=== PATIENT | male | born 1985 | race Caucasian/White ===

== ENCOUNTER 2023-02-13 20:10 | Emergency (ER) | payer SELFPAY ==
[2023-02-13 20:18] VITALS: BP 94/67; PULSE 58; RESP 20; TEMP 36.5; O2SAT 99; BMI 23.0
[2023-02-13 20:28] LABS: Basophils # 0.1 10^3/uL (0.0-0.1); Basophils % 0.7 %; Eosinophils # 0.2 10^3/uL (0.0-0.8); Eosinophils % 1.7 %; Hematocrit 48.3 % (37-53); Lymphocytes # 3.1 10^3/uL (0.8-4.8); Lymphocytes % 28.2 %; Mean Corpuscular Hemoglobin 31.1 pg (27-33); Mean Corpuscular Volume 91.5 fl (82-101); Mean Platelet Volume 10.1 fL (7.4-10.4); Monocytes # 0.9 10^3/uL (0.2-0.9); Monocytes % 8.6 %; Neutrophils # 6.65 10^3/uL (1.8-7.7); Neutrophils % 60.5 %; Nucleated Red Blood Cells % 0 %; Platelet Count 427 10^3/cmm (157-399); Red Blood Count 5.28 10^6/uL (3.85-5.65); Red Cell Distribution Width 13.1 % (12.1-15.1); White Blood Count 10.99 10^3/uL (3.29-11.43)
--- NOTE | 2023-02-13 20:49 | W.ED.ABDPA2 ---
HPI - Abdominal Pain General: Chief Complaint: Abdominal Pain Stated Complaint: abd pain Time Seen by Provider: 02/13/23 20:41 History of Present Illness: Patient presents to the ER with complaints of right lower quadrant abdominal pain for 5 years. Patient states she just got [facility] where he was seen multiple times for this and was told he had a hernia. Patient states he had nausea vomiting diarrhea over the last 3 to 4 days. Patient states he was set up for surgery while he was in [facility] but he was unable to get that because he got released. Patient says he has his medical records from the [facility] but did not bring them the night. Review of Systems General: Reports: 10 or more systems reviewed and unremarkable except in HPI and below Physical Exam Const: COMMON NORMALS: no acute distress, average body habitus, patient oriented x3, no limitations, healthy appearing, alert and well nourished Eye: COMMON NORMALS: Equal, round and reactive pupils present, EOMs intact bilaterally, conjunctivae normal and no scleral icterus CONJUNCTIVA: Yes conjunctivae normal PUPIL: Yes Equal, round and reactive pupils present Neck/C-Spine: COMMON NORMALS: full ROM, no lymphadenopathy, supple, no meningeal signs, no JVD and Thyroid normal THYROID: Thyroid normal Lymph: LYMPHATIC: no lymphadenopathy noted Chest: COMMONS NORMALS: normal inspection of the chest and normal palpation of entire chest wall Resp: COMMON NORMALS: normal respiratory effort, No retractions, No use of accessory muscles and clear to auscultation bilaterally AUSCULTATION: clear to auscultation bilaterally Cardio: COMMON NORMALS: no JVD, regular rate, regular rhythm, S1 normal heart sound present, S2 normal heart sound present, No gallops present (Cardio), No clicks present (Cardio), No murmurs present (Cardio) and No rub (Cardio) RATE: regular rate RHYTHM: regular rhythm HEART SOUNDS: S1 normal heart sound present and S2 normal heart sound present GI: COMMON NORMALS: Normal to inspection, nondistended, normoactive bowel sounds present, Soft to palpation, non-tender, No hepatosplenomegaly present and no masses PALPATION: Yes Soft to palpation and Yes No hepatosplenomegaly present : COMMON NORMALS: Yes no CVA tenderness BLADDER/KIDNEY EXAM: Yes no CVA tenderness Back/Pelvis: COMMON NORMALS: no CVA tenderness Neuro: COMMON NORMALS: patient oriented x3 SENSORIUM/ORIENTATION: Yes alert MENINGEAL SIGNS: Yes no meningeal signs Course Vital Signs: Vital signs: Vital Signs Temperature 97.7 F 02/13/23 20:18 Pulse Rate 68 02/13/23 21:13 Respiratory Rate 16 02/13/23 21:13 Blood Pressure 109/68 02/13/23 22:29 Pulse Oximetry 95 02/13/23 22:29 Oxygen Delivery Me thod Room Air 02/13/23 20:18 MDM - Abdominal Pain Medical Decision Making Patient presents to the ER complains of right lower quadrant abdominal pain for the last 5 years. Patient was worked up with physical exam and lab work that included blood work, urine and imaging and included a contrasted CT scan of the abdomen pelvis all of which were essentially benign. Patient will be discharged to go home and follow-up with his primary care physician for further evaluation and treatment. Differential Diagnosis Likely abdominal pain and gastroenteritis; Unlikely acute appendicitis, calculus of kidney, constipation, diverticulitis, endometriosis, pancreatitis or small bowel obstruction Medical Records I reviewed the patient's medical records. Lab Data I reviewed the patient's lab results. 02/13/23 20:23 02/13/23 20:23 Labs/Radiology: Radiology Impressions Abdomen/Pelvis CT 02/14/23 00:19 IMPRESSION: 1. No acute findings. Normal appendix. 2. Fecal filled colon. COMMENTS: Consistent with the [employer]'s Incidental Findings Committee white paper (J Am Preston Radiol 2018): Any incidental renal lesion less than 1 cm or classified as too small to characterize, or any incidental cystic renal lesion characterized as simple-appearing, is likely benign. No follow-up imaging is recommended for these lesions per consensus recommendations based on imaging criteria. Laboratory Results WBC 10.99 10^3/uL (3.29-11.43) 02/13/23 20:23 RBC 5.28 10^6/uL (3.85-5.65) 02/13/23 20:23 Hgb 16.40 g/dL (11.27-16.99) 02/13/23 20:23 Hct 48.3 % (37-53) 02/13/23 20:23 MCV 91.5 fl (82-101) 02/13/23 20: MCH 31.1 pg (27-33) 02/13/23 20: MCHC 34.0 g/dL (30-55) 02/13/23 20: RDW 13.1 % (12.1-15.1) 02/13/23: Plt Count 427 10^3/cmm (157-399) H 02/13/23 20: MPV 10.1 fL (7.4-10.4) 02/13/23 20: Neut % (Auto) 60.5 % 02/13/23 20: Lymph % (Auto) 28.2 % 02/13/23 20: [place] % (Auto) 8.6 % 02/13/23 20: Eos % (Auto) 1.7 % 02/13/23: Baso % (Auto) 0.7 % 02/13/23: Neut # (Auto) 6.65 10^3/uL (1.8-7.7) 02/13/23: Lymph # (Auto) 3.1 10^3/uL (0.8-4.8) 02/13/23 20: [place] # (Auto) 0.9 10^3/uL (0.2-0.9) 02/13/23 20: Eos # (Auto) 0.2 10^3/uL (0.0-0.8) 02/13/23: Baso # (Auto) 0.1 10^3/uL (0.0-0.1) 02/13/23: Nucleated RBC % (auto) 0 % 02/13/23: Nucleated RBCs # 0.0 /100WBC 02/13/23 20: Sodium 138 mmol/L (136-145) 02/13/23 20: Potassium 4.2 mmol/L (3.5-5.1) 02/13/23 20: Chloride 100 mmol/L (98-107) 02/13/23 20: Carbon Dioxide 28 mmol/L (22-29) 02/13/23 20: Anion Gap 14.2 (5-19) 02/13/23 20: BUN 17 mg/dL (6-20) 02/13/23 20: Creatinine 1.1 mg/dL (0.7-1.2) 02/13/23 20: GFR Calculation 75.7 mL/min (90-130) L 02/13/23 20:23 Glucose 73 mg/dL (65-115) 02/13/23 20:23 Calculated Osmolality 286 mOsm/kg (285-295) 02/13/23 20:23 Calcium 9.7 mg/dL (8.5-10.5) 02/13/23 20:23 Total Bilirubin 0.3 mg/dL (0.15-1.2) 02/13/23 20: AST 26 U/L (0-40) 02/13/23 20:23 ALT 27 U/L (0-41) 02/13/23 20:23 Alkaline Phosphatase 57 U/L (40-130) 02/13/23 20:23 Total Protein 7.8 g/dL (6.6-8.7) 02/13/23 20: Albumin 4.8 g/dL (3.5-5.2) 02/13/23 20: Globulin 3.0 g/dL (1.3-4.6) 02/13/23 20:23 Lipase 68 U/L (13-60) H 02/13/23 20:23 Urine Color Yellow (Yellow) 02/13/23 23:36 Urine Appearance Clear (CLEAR) 02/13/23 23:36 Urine pH 5 (5-7) 02/13/23 23:36 Ur Specific [place] 1.025 (1.005-1.030) 02/13/23 23:36 Urine Protein Trace (Negative) 02/13/23 23:36 Urine Glucose (UA) Norm (Normal) 02/13/23 23:36 Urine Ketones 1+ (Negative) H 02/13/23 23:36 Urine Blood Neg (Negative) 02/13/23 23:36 Urine Nitrate Negative (Negative) 02/13/23 23:36 Urine Bilirubin 1+ (Negative) H 02/13/23 23:36 Urine Urobilinogen 4 mg/dL (Negative) H 02/13/23 23:36 Ur Leukocyte Esterase Negative (Negative) 02/13/23 23:36 Urine RBC None /hpf (0-2) 02/13/23 23:36 Urine WBC None /hpf (0-5) 02/13/23 23:36 Ur Squamous Epith Cells None /hpf (0-5) 02/13/23 23:36 Calcium Oxalate Crystal 0-4 /hpf H 02/13/23 23:36 Amorphous Sediment 1+ /hpf 02/13/23 23:36 Urine Bacteria 1+ /hpf (NONE) H 02/13/23 23:36 Urine Mucus 3+ /hpf 02/13/23 23:36 Discharge Plan Discharge Patient Disposition: Home Clinical Impression: Abdominal pain, chronic, right lower quadrant Condition: Stable Discharge Orders: Discharge ED (Routine); Ordered 02/14/23 Ordered By: Terry Preciado Patient Instructions: Abdominal Pain (ED) Activity Restrictions/Additional Instructions: Please follow-up with your family practice physician for further evaluation and treatment of your chronic abdominal pain. Coding Level of Care Code ED Nutrition Services Worker for Sujatha Kulkarni
[2023-02-13 20:50] LABS: Alanine Aminotransferase 27 U/L (0-41); Albumin Level 4.8 g/dL (3.5-5.2); Alkaline Phosphatase 57 U/L (40-130); Anion Gap 14.2 (5-19); Aspartate Amino Transferase 26 U/L (0-40); Blood Urea Nitrogen 17 mg/dL (6-20); Calcium 9.7 mg/dL (8.5-10.5); Carbon Dioxide 28 mmol/L (22-29); Chloride 100 mmol/L (98-107); Glomerular Filtration Rate 75.7 mL/min (90-130); Glucose 73 mg/dL (65-115); Lipase 68 U/L (13-60); Osmolality Calculated 286 mOsm/kg (285-295); Potassium 4.2 mmol/L (3.5-5.1); Sodium 138 mmol/L (136-145); Total Bilirubin 0.3 mg/dL (0.15-1.2); Total Protein 7.8 g/dL (6.6-8.7)
[2023-02-13 21:13] VITALS: BP 111/69; PULSE 68; RESP 16; O2SAT 93
[2023-02-13 22:29] VITALS: BP 109/68; O2SAT 95
[2023-02-13] MEDS: sodium chloride 0.9% 1,000 ML 999 ML IV (22:30)
[2023-02-14 00:12] LABS: Bilirubin Urine 1+ (Negative); Blood Urine Neg (Negative); Glucose Urine UA Norm (Normal); Ketones Urine 1+ (Negative); Nitrate Urine Negative (Negative); Protein Urine Trace (Negative); Specific Gravity, Urine 1.025 (1.005-1.030); Urine Appearance Clear (CLEAR); Urine Color Yellow (Yellow); pH Urine 5 (5-7)
[2023-02-14 00:13] LABS: Add Urine Culture? No; Add Urine Microscopic? YES; Amorphous Sediment Urine 1+ /hpf; Bacteria Urine 1+ /hpf; Calcium Oxalate Crystals Urine 0-4 /hpf; Leukocyte Esterase Urine Negative (Negative); Mucus Urine 3+ /hpf; Urobilinogen Urine 4 mg/dL (Negative)
--- NOTE | 2023-02-14 00:19 | CTR_ITS ---
PROCEDURE INFORMATION: Exam: CT Abdomen And Pelvis With Contrast Exam date and time: 02/14/2023 12:39 AM Age: 37 years old Clinical indication: Abdominal pain; Localized; Right lower quadrant (rlq); Patient HX: History--patient says he has been in intermediate for 5 years and just got out, he says he has had rlq for all those years but was never able to get in checked out. He says it all started when he was doing pushups. ; Additional info: Rlq abd pain TECHNIQUE: Imaging protocol: Computed tomography of the abdomen and pelvis with contrast. Radiation optimization: All CT scans at this facility use at least one of these dose optimization techniques: automated exposure control; mA and/or kV adjustment per patient size (includes targeted exams where dose is matched to clinical indication); or iterative reconstruction. Contrast material: OMNI 350; Contrast volume: 80 ml; Contrast route: INTRAVENOUS (IV); REPORTING DATA: Count of CT and Cardiac NM exams in prior 12 months: This patient has received 0 known CTs and 0 known cardiac nuclear medicine studies in the 12 months prior to the current study. COMPARISON: No relevant prior studies available. RADIATION DOSE METRICS: Total DLP (mGy-cm): 428.6 FINDINGS: Lungs: The visualized lung bases are clear. Small right basilar calcified benign nodule. Liver: Unremarkable. No enhancing mass. Gallbladder and bile ducts: No calcified gallstones or biliary dilation identified. Pancreas: Unremarkable with no suspicious mass. No ductal dilation. Spleen: The spleen is not enlarged. No suspicious enhancing mass is noted. Adrenal glands: Normal. No mass. Kidneys and ureters: No solid renal mass or hydronephrosis. Few minute left renal cystic foci. Stomach and bowel: No small bowel obstruction or free air. No overt mucosal thickening. The colon is rather fecal filled. Appendix: No evidence of appendicitis. Intraperitoneal space: Unremarkable. No free air. No suspicious fluid collection. Vasculature: No AAA or acute vascular lesion identified. Lymph nodes: No enlarged lymph nodes. Urinary bladder: Unremarkable as visualized. Reproductive: Unremarkable as visualized. Bones/joints: No acute fracture. Soft tissues: No acute or suspicious finding noted. CT/CT abdomen pelvis w con* [id number] IMPRESSION: 1. No acute findings. Normal appendix. 2. Fecal filled colon. COMMENTS: Consistent with the [employer]'s Incidental Findings Committee white paper (J Am Preston Radiol 2018): Any incidental renal lesion less than 1 cm or classified as too small to characterize, or any incidental cystic renal lesion characterized as simple-appearing, is likely benign. No follow-up imaging is recommended for these lesions per consensus recommendations based on imaging criteria.
[2023-02-14] MEDS: iohexol 350 mg/mL 500 mL Btl (per mL) IV (00:48)
[2023-02-14 02:00] VITALS: PULSE 73; RESP 16; O2SAT 97
== END 2023-02-14 02:15 | disposition home or self-care (01) ==
PROVIDERS: Emergency Medicine; Emergency Provider Emergency Medicine
DX: G89.29 Other chronic pain (principal); R10.31 Right lower quadrant pain
CPT/HCPCS: 36415; 74177; 80053; 81001; 81003; 83690; 85025; 99285; J7030; Q9967

== ENCOUNTER 2023-05-15 04:11 | Inpatient (IN) | payer SELFPAY ==
[2023-05-15 04:15] VITALS: BP 131/84; PULSE 85; RESP 16; TEMP 36.6; O2SAT 100
--- NOTE | 2023-05-15 04:31 | W.ED.PSYCHS ---
HPI - Psych General: Chief Complaint: Psychiatric Symptoms Stated Complaint: SI History of Present Illness: Patient presents to the ER for evaluation for suicidal ideation by the police department. 's department responded to his trailer for 911 called stating that he was going to burn his trailer down with him inside. Patient made statements about other people being outside his house shining laser pointers into his house. Patient says he got into a fight with his mother today and they started his irrational behavior. Patient states he just gets to take care of his own. There might talking to him it did appear that he was having visual hallucinations however he never would admit to them. And he was talking tangentially and not making a whole lot of sense part of the time. Patient did report smoking meth within the last 24 hours. Patient also reported being on parole and just recently getting out of intermediate. Review of Systems General: Reports: 10 or more systems reviewed and unremarkable except in HPI and below Physical Exam Const: COMMON NORMALS: no acute distress, average body habitus, healthy appearing, alert and well nourished HENMT: COMMON NORMALS: normocephalic, atraumatic, hearing grossly normal bilaterally, external ears normal, Normal external nose present, moist oral mucous membranes and oropharynx normal HEAD & SCALP: normocephalic and atraumatic NOSE: Normal external nose present EXTERNAL EAR: Yes external ears normal Neck/C-Spine: COMMON NORMALS: no JVD Chest: COMMONS NORMALS: normal inspection of the chest and normal palpation of entire chest wall Resp: COMMON NORMALS: normal respiratory effort, No retractions, No use of accessory muscles and clear to auscultation bilaterally AUSCULTATION: clear to auscultation bilaterally Cardio: COMMON NORMALS: no JVD, regular rate, regular rhythm, S1 normal heart sound present, S2 normal heart sound present, No gallops present (Cardio), No clicks present (Cardio), No murmurs present (Cardio) and No rub (Cardio) RATE: regular rate RHYTHM: regular rhythm HEART SOUNDS: S1 normal heart sound present and S2 normal heart sound present Neuro: SENSORIUM/ORIENTATION: Yes alert Course Vital Signs: Vital signs: Vital Signs Temperature 98 F 05/15/23 04:15 Pulse Rate 85 05/15/23 04:15 Respiratory Rate 16 05/15/23 04:15 Blood Pressure 131/84 05/15/23 04:15 Pulse Oximetry 100 05/15/23 04:15 Oxygen Delivery Me thod Room Air 05/15/23 04:15 MDM - Psych Medical Decision Making Patient brought into the ER for suicidal ideation and hallucinations. Patient admitted to using methamphetamines within the last 24 hours. He admitted to being on parole and just being recently released out of intermediate. Patient was having psychotic behavior and visual hallucinations and did say that he threatened to burn his house down with him inside it. Patient was worked up in normal suicidal psychiatric type fashion. Anticipated patient will be placed on a 96-hour hold for further evaluation and treatment as an inpatient in the [facility]. Discussed case with Dr. Ordonez who agrees to accept patient for into the [facility] for further evaluation and treatment. Differential Diagnosis Likely acute psychosis, suicidal ideation and drug-induced psychotic disorder; Unlikely chronic schizophrenia, bipolar disorder, depression or acute anxiety Medical Records I reviewed the patient's medical records. Lab Data I reviewed the patient's lab results. 05/15/23 04:30 05/15/23 04:30 Laboratory Results WBC 7.62 10^3/uL (3.29-11.43) 05/15/23 04:30 RBC 4.67 10^6/uL (3.85-5.65) 05/15/23 04:30 Hgb 14.50 g/dL (11.27-16.99) 05/15/23 04:30 Hct 42.9 % (37-53) 05/15/23 04:30 MCV 91.9 fl (82-101) 05/15/23 04:30 MCH 31.0 pg (27-33) 05/15/23 04:30 MCHC 33.8 g/dL (30-55) 05/15/23 04:30 RDW 13.4 % (12.1-15.1) 05/15/23 04:30 Plt Count 349 10^3/cmm (157-399) 05/15/23 04:30 MPV 10.1 fL (7.4-10.4) 05/15/23 04:30 Neut % (Auto) 64.8 % 05/15/23 04:30 Lymph % (Auto) 24.4 % 05/15/23 04:30 [place] % (Auto) 8.9 % 05/15/23 04:30 Eos % (Auto) 0.7 % 05/15/23 04:30 Baso % (Auto) 0.9 % 05/15/23 04:30 Neut # (Auto) 4.94 10^3/uL (1.8-7.7) 05/15/23 04:30 Lymph # (Auto) 1.9 10^3/uL (0.8-4.8) 05/15/23 04:30 [place] # (Auto) 0.7 10^3/uL (0.2-0.9) 05/15/23 04:30 Eos # (Auto) 0.1 10^3/uL (0.0-0.8) 05/15/23 04:30 Baso # (Auto) 0.1 10^3/uL (0.0-0.1) 05/15/23 04:30 Nucleated RBC % (auto) 0 % 05/15/23 04:30 Nucleated RBCs # 0.0 /100WBC 05/15/23 04:30 Sodium 139 mmol/L (136-145) 05/15/23 04:30 Potassium 3.2 mmol/L (3.5-5.1) L 05/15/23 04:30 Chloride 98 mmol/L (98-107) 05/15/23 04:30 Carbon Dioxide 28 mmol/L (22-29) 05/15/23 04:30 Anion Gap 16.2 (5-19) 05/15/23 04:30 BUN 17 mg/dL (6-20) 05/15/23 04:30 Creatinine 0.8 mg/dL (0.7-1.2) 05/15/23 04:30 GFR Calculation 109.4 mL/min (90-130) 05/15/23 04:30 Glucose 103 mg/dL (65-115) 05/15/23 04:30 Calculated Osmolality 290 mOsm/kg (285-295) 05/15/23 04:30 Calcium 9.3 mg/dL (8.5-10.5) 05/15/23 04:30 Total Bilirubin 1.1 mg/dL (0.15-1.2) 05/15/23 04:30 AST 41 U/L (0-40) H 05/15/23 04:30 ALT 25 U/L (0-41) 05/15/23 04:30 Alkaline Phosphatase 56 U/L (40-130) 05/15/23 04:30 Total Protein 7.4 g/dL (6.6-8.7) 05/15/23 04:30 Albumin 4.4 g/dL (3.5-5.2) 05/15/23 04:30 Globulin 3.0 g/dL (1.3-4.6) 05/15/23 04:30 Salicylates < 0.3 mg/dL (3-10) L 05/15/23 04:30 Acetaminophen < 5.0 ug/mL (10-30) L 05/15/23 04:30 Ethyl Alcohol < 10 mg/dL (0-10) 05/15/23 04:30 No radiology studies performed this visit Discharge Plan Discharge Patient Disposition: Admitted As Inpatient Clinical Impression: Suicidal ideation, Methamphetamine abuse Drug-induced psychotic disorder Qualifiers: Complication of substance-induced condition: with hallucinations Qualified Code(s): F19.951 - Other psychoactive substance use, unspecified with psychoactive substance-induced psychotic disorder with hallucinations Condition: Stable Coding Level of Care Code ED Digital Marketing Manager for Sujatha Kulkarni
[2023-05-15 04:39] LABS: Basophils # 0.1 10^3/uL (0.0-0.1); Basophils % 0.9 %; Eosinophils # 0.1 10^3/uL (0.0-0.8); Eosinophils % 0.7 %; Hematocrit 42.9 % (37-53); Lymphocytes # 1.9 10^3/uL (0.8-4.8); Lymphocytes % 24.4 %; Mean Corpuscular HGB Conc 33.8 g/dL (30-55); Mean Corpuscular Volume 91.9 fl (82-101); Mean Platelet Volume 10.1 fL (7.4-10.4); Monocytes # 0.7 10^3/uL (0.2-0.9); Monocytes % 8.9 %; Neutrophils # 4.94 10^3/uL (1.8-7.7); Neutrophils % 64.8 %; Nucleated Red Blood Cells % 0 %; Platelet Count 349 10^3/cmm (157-399); Red Blood Count 4.67 10^6/uL (3.85-5.65); Red Cell Distribution Width 13.4 % (12.1-15.1); White Blood Count 7.62 10^3/uL (3.29-11.43)
[2023-05-15 04:51] LABS: Alanine Aminotransferase 25 U/L (0-41); Albumin Level 4.4 g/dL (3.5-5.2); Alkaline Phosphatase 56 U/L (40-130); Anion Gap 16.2 (5-19); Aspartate Amino Transferase 41 U/L (0-40); Blood Urea Nitrogen 17 mg/dL (6-20); Calcium 9.3 mg/dL (8.5-10.5); Carbon Dioxide 28 mmol/L (22-29); Chloride 98 mmol/L (98-107); Glomerular Filtration Rate 109.4 mL/min (90-130); Glucose 103 mg/dL (65-115); Osmolality Calculated 290 mOsm/kg (285-295); Potassium 3.2 mmol/L (3.5-5.1); Sodium 139 mmol/L (136-145); Total Bilirubin 1.1 mg/dL (0.15-1.2); Total Protein 7.4 g/dL (6.6-8.7)
[2023-05-15 04:53] LABS: Acetaminophen < 5.0 ug/mL (10-30); Alcohol Level < 10 mg/dL (0-10); Salicylate < 0.3 mg/dL (3-10)
--- NOTE | 2023-05-15 05:30 | PC.NURSE ---
96 Hour Involuntary Hold Patient Rights have been presented to the patient and a copy of the same has been provided to him. Rn Imcu Celso Lord was present at bedside.
[2023-05-15 06:11] VITALS: BP 122/84; PULSE 79; RESP 18; TEMP 36.4; O2SAT 100
[2023-05-15 14:00] VITALS: BP 116/67; PULSE 70; RESP 18; TEMP 36.8; O2SAT 99
[2023-05-15] MEDS: nicotine 4 mg lozenge MUCOUS MEM (18:07)
[2023-05-15] MEDS: acetaminophen 325 mg Tablet 650 MG PO (20:12)
[2023-05-15 20:20] VITALS: BP 92/61; PULSE 110; RESP 16; TEMP 36.9; O2SAT 93
--- NOTE | 2023-05-16 06:32 | W.PM.NPUH&PS ---
Providers/Chief Complaint Admitting Physician: Sesar Ordonez MD Chief Complaint: SI HPI NPU History of Present Illness Felix Greene is a 37 year old male who presented to the emergency department with the following report: Chief Complaint: Psychiatric Symptoms Stated Complaint: SI History of Present Illness: Patient presents to the ER for evaluation for suicidal ideation by the police department. [employer]'s department responded to his trailer for 911 called stating that he was going to burn his trailer down with him inside. Patient made statements about other people being outside his house shining laser pointers into his house. Patient says he got into a fight with his mother today and they started his irrational behavior. Patient states he just gets to take care of his own. There might talking to him it did appear that he was having visual hallucinations however he never would admit to them. And he was talking tangentially and not making a whole lot of sense part of the time. Patient did report smoking meth within the last 24 hours. Patient also reported being on parole and just recently getting out of detention. He was admitted to the neuropsychiatric unit for definitive treatment of those issues. Patient presented today reporting that he is doing okay. He is mostly focused on his conflicts with his family. In the entire conversation he absolutely downplayed any issues with addiction though his UDS was positive for cannabis and amphetamines. He presents reporting that he just got out of detention 6 months ago and that the challenge has been trying to reintegrate with his family reporting that at times he is needed them and they have not been there for him. He denied any issues with depression anxiety or any other mental health symptoms and spent much of the time talking about the fact that he just needs to leave town. He did not want to talk about some of the psychosocial questions that I was asking. He kept saying that he just made a mistake and trying to count on his family and he just needs to get out of town. He does acknowledge that prior to going into detention that he had some issues with drugs but he reports that that is all behind him now. He was a poor historian and was often confused by questions. We discussed the possibility of considering medication discussing the risks, benefits and alternatives and he understood but was not interested in starting medications at this time. He downplayed the psychotic symptoms that have been identified prior to admission and in the emergency department. Meds NPU Home Medications Medication Instructions Recorded Confirmed Last Taken Type No Known Home Medications 05/15/23 05/15/23 Unknown History Allergies Allergy/AdvReac Type Severity Reaction Status Date / Time Penicillins Allergy Mild Unknown Verified 02/13/23 20:28 Mental Status Exam MSE Comments: This is a slender white male in hospital scrubs with limited grooming but adequate eye contact. No abnormal movements except for mild psychomotor agitation. Mostly cooperative with exam in mild to moderate distress. Speech was decreased rate and volume. Lastly, affect irritable. Thought process organized. Thought content: Patient denied suicidal or homicidal ideation, no delusions reported noted, he denied any auditory or visual hallucinations. Attention and concentration were intact and memory appeared reliable but none were formally tested. He is alert and oriented x 3. Insight, judgment impulse control are limited versus impaired. Vitals/I&O/Wt Last Vital Signs Temp 98 F 05/15/23 04:15 Pulse 85 05/15/23 04:15 Resp 16 05/15/23 04:15 BP 131/84 05/15/23 04:15 Pulse Ox 100 05/15/23 04:15 O2 Del Method Room Air 05/15/23 04:15 Weight last 48 hrs Weight 63.503 kg Data NPU 05/15/23 04:30 05/15/23 04:30 A&P Assessment and plan (1) Methamphetamine abuse: (2) Drug-induced psychotic disorder: Qualifiers: Complication of substance-induced condition: with hallucinations Qualified Code(s): F19.951 - Other psychoactive substance use, unspecified with psychoactive substance-induced psychotic disorder with hallucinations (3) Suicidal ideation: Plan This is a 37-year-old white male with no major mental health issues or treatment reported who presents after a conflict with his family where there were reports of suicidal ideation reporting that he is doing fine and just needs to leave town not reporting openness to medication. 1. Continue current medication. 2. Continue every 15 minute checks for safety. 3. Encourage individual, group and milieu therapies. 4. Encourage sober living treatment after discharge at the highest level of care to which he is willing to go. Attestations N[facility] Medical Necessity Statement*: Inpatient hospitalization is medically necessary and the clinically appropriate intervention at this time. We will monitor/initiate medications and make changes as indicated. He will be in the hospital for over 2 midnights. Likely length of stay 3 to 5 days. Coding Level of Care Code Acute Code for Chg Fwd Diagnoses Methamphetamine abuse F15.10 Drug-induced psychotic disorder F19.951 Complication of substance-induced condition: with hallucinations Suicidal ideation R45.851
--- NOTE | 2023-05-16 06:42 | PC.NURSE ---
pt sleeping resp 16
[2023-05-16 14:00] VITALS: BP 64/44; PULSE 104; RESP 16; TEMP 36.8; O2SAT 97
[2023-05-16] MEDS: acetaminophen 325 mg Tablet 650 MG PO (17:50)
[2023-05-16 18:30] LABS: Add Urine Microscopic? YES; Bilirubin Urine Neg (Negative); Blood Urine Neg (Negative); Glucose Urine UA Norm (Normal); Ketones Urine Negative (Negative); Leukocyte Esterase Urine Negative (Negative); Nitrate Urine Negative (Negative); Protein Urine Neg (Negative); Specific Gravity, Urine 1.015 (1.005-1.030); Urine Appearance Hazy (CLEAR); Urine Color Yellow (Yellow); Urobilinogen Urine Norm (Negative); pH Urine 7 (5-7)
[2023-05-16 18:31] LABS: Add Urine Culture? No; Amorphous Sediment Urine 2+ /hpf; Bacteria Urine TRACE /hpf; RBC Urine 0-4 /hpf (0-2); Squamous Epithelial Cell Urine 0-4 /hpf (0-5); WBC Urine 0-4 /hpf (0-5)
[2023-05-16 18:42] LABS: Amphetamines Screen Urine Positive (Negative); Barbiturates Screen Urine Negative (Negative); Benzodiazepines Screen Urine Negative (Negative); Cocaine Screen Urine Negative (Negative); Opiate Screen Urine Negative (Negative); PCP Screen Urine Negative (Negative); THC Screen Urine Positive (Negative)
[2023-05-16 20:52] VITALS: BP 94/54; PULSE 68; RESP 16; TEMP 36.8; O2SAT 99
[2023-05-17 06:00] VITALS: BP 110/68; PULSE 65; RESP 18; TEMP 36.7; O2SAT 99
--- NOTE | 2023-05-17 08:32 | P.NPUPN_ITS ---
Subjective NPU 2 Subjective: Patient presented today reporting that he is doing okay. When the methamphetamine was brought at this time he was more forthcoming and discussing his difficulties but reports that he has been sober since before he went into care home. He reports that he plans to put it back behind him but feels that the best opportunity is him going to [place] and getting things recalibrated. We discussed the possibility of discharge to beginning of the week. Mental Status Exam 2 MSE Comments: This is a slender white male in hospital scrubs with limited grooming but adequate eye contact. No abnormal movements except for mild psychomotor agitation. Mostly cooperative with exam in mild to moderate distress. Speech was decreased rate and volume. Lastly, affect irritable. Thought process organized. Thought content: Patient denied suicidal or homicidal ideation, no delusions reported noted, he denied any auditory or visual hallucinations. Attention and concentration were intact and memory appeared reliable but none were formally tested. He is alert and oriented x 3. Insight, judgment impulse control are limited versus impaired. Vitals/I&O/Wt Last Vital Signs Temp 98.1 F 05/17/23 06:00 Pulse 65 05/17/23 06:00 Resp 18 05/17/23 06:00 BP 110/68 05/17/23 06:00 Pulse Ox 99 05/17/23 06:00 O2 Del Method Room Air 05/16/23 14:00 Data NPU 05/15/23 04:30 05/15/23 04:30 A&P Assessment and plan (1) Methamphetamine abuse: (2) Drug-induced psychotic disorder: Qualifiers: Complication of substance-induced condition: with hallucinations Qualified Code(s): F19.951 - Other psychoactive substance use, unspecified with psychoactive substance-induced psychotic disorder with hallucinations (3) Suicidal ideation: Plan This is a 37-year-old white male with no major mental health issues or treatment reported who presents after a conflict with his family where there were reports of suicidal ideation reporting that he is doing fine and just needs to leave town not reporting openness to medication. 1. Continue current medication. 2. Continue every 15 minute checks for safety. 3. Encourage individual, group and milieu therapies. 4. Encourage sober living treatment after discharge at the highest level of care to which he is willing to go. Involuntary Hold Information 2 96 Hour Hold: 96 Hour Involuntary Admission: Yes 96 Hour Hold Ending Date: 05/21/23 96 Hour Hold Ending Time: 04:11 Attestations NPU 2 Medical Necessity Statement*: Inpatient hospitalization is medically necessary and the clinically appropriate intervention at this time. We will monitor/initiate medications and make changes as indicated. Likely length of stay 2-4 days. Coding Level of Care Code Acute Code for Chg Fwd Diagnoses Methamphetamine abuse F15.10 Drug-induced psychotic disorder F19.951 Complication of substance-induced condition: with hallucinations Suicidal ideation R45.851
[2023-05-17 14:00] VITALS: BP 108/77; PULSE 75; RESP 16; TEMP 36.6; O2SAT 98
[2023-05-17 20:43] VITALS: BP 106/66; PULSE 67; RESP 18; O2SAT 96
[2023-05-18 06:00] VITALS: BP 115/68; PULSE 67; RESP 16; O2SAT 99
--- NOTE | 2023-05-18 13:03 | P.NPUPN_ITS ---
Subjective NPU 2 Subjective: Patient presented today reporting that he is feeling better and we continue to talk about his difficulties with methamphetamine. His plan is to work with his family once the social work team returns get his RV and move up to [place] where he has a better chance of being stable. Mental Status Exam 2 MSE Comments: This is a slender white male in hospital scrubs with limited grooming but adequate eye contact. No abnormal movements except for mild psychomotor agitation. Mostly cooperative with exam in mild to moderate distress. Speech was decreased rate and volume. Lastly, affect irritable. Thought process organized. Thought content: Patient denied suicidal or homicidal ideation, no delusions reported noted, he denied any auditory or visual hallucinations. Attention and concentration were intact and memory appeared reliable but none were formally tested. He is alert and oriented x 3. Insight, judgment impulse control are limited versus impaired. Vitals/I&O/Wt Last Vital Signs Temp 97.8 F 05/17/23 14:00 Pulse 67 05/18/23 06:00 Resp 16 05/18/23 06:00 BP 115/68 05/18/23 06:00 Pulse Ox 99 05/18/23 06:00 O2 Del Method Room Air 05/17/23 14:00 Weight last 48 hrs Weight 61.326 kg Data NPU 05/15/23 04:30 05/15/23 04:30 A&P Assessment and plan (1) Methamphetamine abuse: (2) Drug-induced psychotic disorder: Qualifiers: Complication of substance-induced condition: with hallucinations Qualified Code(s): F19.951 - Other psychoactive substance use, unspecified with psychoactive substance-induced psychotic disorder with hallucinations (3) Suicidal ideation: Plan This is a 37-year-old white male with no major mental health issues or treatment reported who presents after a conflict with his family where there were reports of suicidal ideation reporting that he is doing fine and just needs to leave town not reporting openness to medication. 1. Continue current medication. 2. Continue every 15 minute checks for safety. 3. Encourage individual, group and milieu therapies. 4. Encourage sober living treatment after discharge at the highest level of care to which he is willing to go. Involuntary Hold Information 2 96 Hour Hold: 96 Hour Involuntary Admission: Yes 96 Hour Hold Ending Date: 05/21/23 96 Hour Hold Ending Time: 04:11 Attestations NPU 2 Medical Necessity Statement*: Inpatient hospitalization is medically necessary and the clinically appropriate intervention at this time. We will monitor/initiate medications and make changes as indicated. Likely length of stay 1-3 yes days. Coding Level of Care Code Acute Code for Chg Fwd Diagnoses Methamphetamine abuse F15.10 Drug-induced psychotic disorder F19.951 Complication of substance-induced condition: with hallucinations Suicidal ideation R45.851
[2023-05-18 14:00] VITALS: BP 114/71; PULSE 68; RESP 16; TEMP 36.6; O2SAT 98
[2023-05-18 19:39] VITALS: BP 120/93; PULSE 78; RESP 18; TEMP 36.7; O2SAT 97
[2023-05-18] MEDS: ibuprofen 600 mg Tablet PO (19:44)
[2023-05-19 06:00] VITALS: BP 112/75; PULSE 60; RESP 16; O2SAT 100
--- NOTE | 2023-05-19 13:02 | W.PM.NPUDCS ---
Diagnoses at Discharge Discharge Diagnosis (1) Methamphetamine abuse: Status: Acute (2) Drug-induced psychotic disorder: Status: Acute Qualifiers: Complication of substance-induced condition: with hallucinations Qualified Code(s): F19.951 - Other psychoactive substance use, unspecified with psychoactive substance-induced psychotic disorder with hallucinations (3) Suicidal ideation: Status: Resolved Reason for Visit Reason for Visit: SI Brief History: History of Present Illness Felix Greene is a 37 year old male who presented to the emergency department with the following report: Chief Complaint: Psychiatric Symptoms Stated Complaint: SI History of Present Illness: Patient presents to the ER for evaluation for suicidal ideation by the police department. [employer]'s department responded to his trailer for 911 called stating that he was going to burn his trailer down with him inside. Patient made statements about other people being outside his house shining laser pointers into his house. Patient says he got into a fight with his mother today and they started his irrational behavior. Patient states he just gets to take care of his own. There might talking to him it did appear that he was having visual hallucinations however he never would admit to them. And he was talking tangentially and not making a whole lot of sense part of the time. Patient did report smoking meth within the last 24 hours. Patient also reported being on parole and just recently getting out of correction. He was admitted to the neuropsychiatric unit for definitive treatment of those issues. Patient presented today reporting that he is doing okay. He is mostly focused on his conflicts with his family. In the entire conversation he absolutely downplayed any issues with addiction though his UDS was positive for cannabis and amphetamines. He presents reporting that he just got out of correction 6 months ago and that the challenge has been trying to reintegrate with his family reporting that at times he is needed them and they have not been there for him. He denied any issues with depression anxiety or any other mental health symptoms and spent much of the time talking about the fact that he just needs to leave town. He did not want to talk about some of the psychosocial questions that I was asking. He kept saying that he just made a mistake and trying to count on his family and he just needs to get out of town. He does acknowledge that prior to going into correction that he had some issues with drugs but he reports that that is all behind him now. He was a poor historian and was often confused by questions. We discussed the possibility of considering medication discussing the risks, benefits and alternatives and he understood but was not interested in starting medications at this time. He downplayed the psychotic symptoms that have been identified prior to admission and in the emergency department. Hospital Course Hospital Course He slowly acclimated to the individual, group and milieu therapies provided. He presented with a long history of legal challenges and incarceration. He was endorsing lethality and there were concerns for antisocial personality disorder and possibly malingering. He was not interested in starting any medications and was resistant in general to treatment. We monitored him to do due diligence for consideration of discharge. Ultimately he worked with the social work team for outpatient resources and collaboration with his support system to assist him in possibly getting out of town which was his reported desire. During the stay, he had significant improvement and was able to contract for safety outside of the hospital prior to discharge. During the hospitalization, the patient had routine laboratory studies which were within normal limits except for a few outliers.? Additionally, there was a general medical evaluation which was also within normal limits and revealed no new acute processes.? At the time of discharge, he denied psychosis or lethality.? Mood and anxiety were well managed.? The patient endorsed a plan to avoid all drugs of abuse and follow up with the aftercare recommendations of the treatment team.? The patient was evaluated and deemed to be absent credible lethality and had achieved the maximum benefit from an inpatient hospitalization, and so was discharged. Involuntary Hold Information 96 Hour Hold: 96 Hour Involuntary Admission: Yes 96 Hour Hold Ending Date: 05/21/23 96 Hour Hold Ending Time: 04:11 Mental Status Exam MSE Comments: This is a slender white male in hospital scrubs with limited grooming but adequate eye contact. No abnormal movements except for mild psychomotor agitation. Mostly cooperative with exam in mild distress. Speech was decreased rate and volume. Mood described as okay, affect less irritable. Thought process organized. Thought content: Patient denied suicidal or homicidal ideation, no delusions reported noted, he denied any auditory or visual hallucinations. Attention and concentration were intact and memory appeared reliable but none were formally tested. He is alert and oriented x 3. Insight, judgment impulse control are limited, but improving. Discharge Data Studies Completed and Pending: Laboratory Results WBC 7.62 10^3/uL (3.2 9-11.43) 05/15/23 04:30 RBC 4.67 10^6/uL (3.8 5-5.65) 05/15/23 04:30 Hgb 14.50 g/dL (11.27 -16.99) 05/15/23 04:30 Hct 42.9 % (37-53) 05/15/23 04:30 MCV 91.9 fl (82-101) 05/15/23 04:30 MCH 31.0 pg (27-33) 05/15/23 04:30 MCHC 33.8 g/dL (30-55) 05/15/23 04:30 RDW 13.4 % (12.1-15.1 ) 05/15/23 04:30 Plt Count 349 10^3/cmm (157 -399) 05/15/23 04:30 MPV 10.1 fL (7.4-10.4 ) 05/15/23 04:30 Neut % (Auto) 64.8 % 05/15/23 04:30 Lymph % (Auto) 24.4 % 05/15/23 04:30 [place] % (Auto) 8.9 % 05/15/23 04:30 Eos % (Auto) 0.7 % 05/15/23 04:30 Baso % (Auto) 0.9 % 05/15/23 04:30 Neut # (Auto) 4.94 10^3/uL (1.8 -7.7) 05/15/23 04:30 Lymph # (Auto) 1.9 10^3/uL (0.8- 4.8) 05/15/23 04:30 [place] # (Auto) 0.7 10^3/uL (0.2- 0.9) 05/15/23 04:30 Eos # (Auto) 0.1 10^3/uL (0.0- 0.8) 05/15/23 04:30 Baso # (Auto) 0.1 10^3/uL (0.0- 0.1) 05/15/23 04:30 Nucleated RBC % (a uto) 0 % 05/15/23 04:30 Nucleated RBCs # 0.0 /100WBC 05/15/23 04:30 Sodium 139 mmol/L (136-1 45) 05/15/23 04:30 Potassium 3.2 mmol/L (3.5-5 .1) L 05/15/23 04:30 Chloride 98 mmol/L (98-107 ) 05/15/23 04:30 Carbon Dioxide 28 mmol/L (22-29) 05/15/23 04:30 Anion Gap 16.2 (5-19) 05/15/23 04:30 BUN 17 mg/dL (6-20) 05/15/23 04:30 Creatinine 0.8 mg/dL (0.7-1. 2) 05/15/23 04:30 GFR Calculation 109.4 mL/min (90- 130) 05/15/23 04:30 Glucose 103 mg/dL (65-115 ) 05/15/23 04:30 Calculated Osmolal ity 290 mOsm/kg (285- 295) 05/15/23 04:30 Calcium 9.3 mg/dL (8.5-10 .5) 05/15/23 04:30 Total Bilirubin 1.1 mg/dL (0.15-1 .2) 05/15/23 04:30 AST 41 U/L (0-40) H 05/15/23 04:30 ALT 25 U/L (0-41) 05/15/23 04:30 Alkaline Phosphata se 56 U/L (40-130) 05/15/23 04:30 Total Protein 7.4 g/dL (6.6-8.7 ) 05/15/23 04:30 Albumin 4.4 g/dL (3.5-5.2 ) 05/15/23 04:30 Globulin 3.0 g/dL (1.3-4.6 ) 05/15/23 04:30 Urine Color Yellow (Yellow) 05/16/23 17:30 Urine Appearance Hazy (CLEAR) A 05/16/23 17:30 Urine pH 7 (5-7) 05/16/23 17:30 Ur Specific Gravit y 1.015 (1.005-1.0 30) 05/16/23 17:30 Urine Protein Neg (Negative) 05/16/23 17:30 Urine Glucose (UA) Norm (Normal) 05/16/23 17:30 Urine Ketones Negative (Negati ve) 05/16/23 17:30 Urine Blood Neg (Negative) 05/16/23 17:30 Urine Nitrate Negative (Negati ve) 05/16/23 17:30 Urine Bilirubin Neg (Negative) 05/16/23 17:30 Urine Urobilinogen Norm mg/dL (Negat kaiden) 05/16/23 17:30 Ur Leukocyte Carol ase Negative (Negati ve) 05/16/23 17:30 Urine RBC 0-4 /hpf (0-2) H 05/16/23 17:30 Urine WBC 0-4 /hpf (0-5) H 05/16/23 17:30 Ur Squamous Epith Cells 0-4 /hpf (0-5) H 05/16/23 17:30 Amorphous Sediment 2+ /hpf 05/16/23 17:30 Urine Bacteria Trace /hpf (NONE) 05/16/23 17:30 Salicylates < 0.3 mg/dL (3-10 ) L 05/15/23 04:30 Urine Opiates Scre en Negative ng/mL (N egative) 05/16/23 17:30 Acetaminophen < 5.0 ug/mL (10-3 0) L 05/15/23 04:30 Ur Barbiturates Sc reen Negative ng/mL (N egative) 05/16/23 17:30 Ur Phencyclidine S crn Negative ng/mL (N egative) 05/16/23 17:30 Ur Amphetamines Sc reen Positive ng/mL (N egative) H 05/16/23 17:30 U Benzodiazepines Scrn Negative ng/mL (N egative) 05/16/23 17:30 Urine Cocaine Scre en Negative ng/mL (N egative) 05/16/23 17:30 U Marijuana (THC) Screen Positive ng/mL (N egative) H 05/16/23 17:30 Ethyl Alcohol < 10 mg/dL (0-10) 05/15/23 04:30 Vitals: Last Vital Signs Temp 98.0 F 05/18/23 19:39 Pulse 60 05/19/23 06:00 Resp 16 05/19/23 06:00 BP 112/75 05/19/23 06:00 Pulse Ox 100 05/19/23 06:00 O2 Del Method Room Air 05/18/23 19:39 Discharge Plan Discharge Patient Disposition: Home Condition: Stable Prescriptions: No Action No Known Home Medications Discharge Orders: Discharge Order (Routine); Ordered 05/19/23 Ordered By: Sesar Ordonez Referrals: [facility] [Other] [facility] [Outside] - 05/22/23 12:30 pm (Initial appointment on May 22 @ 12:30 pm with Reny Parsons ) Discharge Diet: Regular Discharge Activity: Resume usual activity Patient Instructions: Methamphetamine Abuse, Help Prevent Suicide (DC), Suicide Prevention (DC), Opioid Safety Discharge Attestations NPU Time Spent in Discharge Care*: less than 30 min Specific Discharge Activities: Specific discharge activities: educating patient, discussing with case operator/social workers/dc planners, documenting/other paperwork and evaluating patient/reviewing data Coding Level of Care Code Acute Code for Chg Fwd Diagnoses Methamphetamine abuse F15.10 Drug-induced psychotic disorder F19.951 Complication of substance-induced condition: with hallucinations Suicidal ideation R45.851
[2023-05-19 13:13] VITALS: BP 112/75; PULSE 60; RESP 16; O2SAT 100
== END 2023-05-19 15:11 | disposition home or self-care (01) | DRG 897 ==
LOC: ER 05:13 → NP 05:43
PROVIDERS: Admitting Provider Psychiatry & Neurology Psychiatry; Emergency Provider Emergency Medicine; Visit Provider Psychiatry & Neurology Psychiatry
DX: F15.151 Other stimulant abuse with stimulant-induced psychotic disorder with hallucinations (principal); R45.851 Suicidal ideations
CPT/HCPCS: 80053; 80306; 80307; 81001; 85025; 97150; 97165; 99285

== ENCOUNTER 2023-11-26 17:42 | Emergency (ER) | payer SELFPAY ==
[2023-11-26 17:43] VITALS: BP 123/83; PULSE 62; RESP 18; TEMP 36.7; O2SAT 99; BMI 21.5
[2023-11-26 17:48] VITALS: BP 127/86; PULSE 60; RESP 16; O2SAT 99
--- NOTE | 2023-11-26 17:50 | ED_ITS ---
HPI - Abdominal Pain 2 General: Chief Complaint: Abdominal Pain Stated Complaint: ABD pain Time Seen by Provider: 11/26/23 17:43 Source: patient and police Mode of arrival: ambulatory Limitations: no limitations History of Present Illness: 37-year-old male is here with police he is currently in snf states has been having right lower quadrant abdominal pain for months states has been told the past he has a hernia currently resting in the bed comfortably states pain is 2 out of 10 denies any worse improving factors. Associated Symptoms: Denies chills, diarrhea, fever(s), nausea and vomiting Review of Systems 2 Const: Denies: fever(s), chills, body aches or change in appetite ENMT: Denies: throat pain or dental pain Card: Denies: chest pain Resp: Denies: dyspnea GI: Reports: abdominal pain; Denies: nausea, vomiting or diarrhea Musc: Denies: neck pain or back pain Skin/Breast: Denies: rash Neuro: Denies: headache(s) Physical Exam 2 Const: COMMON NORMALS: no acute distress, patient oriented x3 and healthy appearing HENMT: COMMON NORMALS: normocephalic and atraumatic HEAD & SCALP: n ormocephalic and atraumatic Eye: COMMON NORMALS: Equal, round and reactive pupils present and EOMs intact bilaterally PUPIL: Yes Equal, round and reactive pupils present Neck/C-Spine: COMMON NORMALS: full ROM and supple Chest: COMMONS NORMALS: normal inspection of the chest Resp: COMMON NORMALS: normal respiratory effort Cardio: COMMON NORMALS: regular rate, regular rhythm and No murmurs present (Cardio) RATE: regular rate RHYTHM: regular rhythm GI: COMMON NORMALS: Soft to palpation PALPATION: Yes Soft to palpation O THER: No tenderness on exam easily reducible hernia in right lower quadrant Extremity: COMMON NORMALS: normal to inspection and full ROM Neuro: COMMON NORMALS: patient oriented x3, moves all extremities and no focal motor deficits Psych: COMMON NORMALS: mental status grossly normal, Normal thought process present and cooperative THOUGHT PROCESS: Normal thought process present Skin: COMMON NORMALS: no rashes or lesions noted and no wounds GENERAL SKIN EXAM: no rashes or lesions noted Course 2 Vital Signs: Vital signs: Vital Signs Temperature 98.1 F 11/26/23 17:43 Pulse Rate 61 11/26/23 18:50 Respiratory Rate 14 11/26/23 18:50 Blood Pressure 123/83 11/26/23 18:50 Pulse Oximetry 98 11/26/23 18:50 Oxygen Delivery Me thod Room Air 11/26/23 17:43 MDM - Abdominal Pain Medical Decision Making Patient presents here with abdominal pain likely from his hernia his exam here is benign with no tenderness no signs of acute surgical abdomen patient stable for discharge he is follow-up with PCP return if worsening. Medical Records I reviewed the patient's medical records. Lab Data I reviewed the patient's lab results. 11/26/23 18:10 11/26/23 18:10 Labs/Radiology: Laboratory Results WBC 6.38 10^3/uL (3.29-11.43) 11/26/23 18:10 RBC 4.85 10^6/uL (3.85-5.65) 11/26/23 18:10 Hgb 14.80 g/dL (11.27-16.99) 11/26/23 18:10 Hct 43.1 % (37-53) 11/26/23 18:10 MCV 88.9 fl (82-101) 11/26/23 18:10 MCH 30.5 pg (27-33) 11/26/23 18:10 MCHC 34.3 g/dL (30-55) 11/26/23 18:10 RDW 12.3 % (12.1-15.1) 11/26/23 18:10 Plt Count 346 10^3/cmm (157-399) 11/26/23 18:10 MPV 10.2 fL (7.4-10.4) 11/26/23 18:10 Neut % (Auto) 53.4 % 11/26/23 18:10 Lymph % (Auto) 33.7 % 11/26/23 18:10 [place] % (Auto) 7.4 % 11/26/23 18:10 Eos % (Auto) 4.5 % 11/26/23 18:10 Baso % (Auto) 0.8 % 11/26/23 18:10 Neut # (Auto) 3.41 10^3/uL (1.8-7.7) 11/26/23 18:10 Lymph # (Auto) 2.2 10^3/uL (0.8-4.8) 11/26/23 18:10 [place] # (Auto) 0.5 10^3/uL (0.2-0.9) 11/26/23 18:10 Eos # (Auto) 0.3 10^3/uL (0.0-0.8) 11/26/23 18:10 Baso # (Auto) 0.1 10^3/uL (0.0-0.1) 11/26/23 18:10 Nucleated RBC % (auto) 0 % 11/26/23 18:10 Nucleated RBCs # 0.0 /100WBC 11/26/23 18:10 Sodium 141 mmol/L (136-145) 11/26/23 18:10 Potassium 3.9 mmol/L (3.5-5.1) 11/26/23 18:10 Chloride 105 mmol/L (98-107) 11/26/23 18:10 Carbon Dioxide 28 mmol/L (22-29) 11/26/23 18:10 Anion Gap 11.9 (5-19) 11/26/23 18:10 BUN 13 mg/dL (6-20) 11/26/23 18:10 Creatinine 1.0 mg/dL (0.7-1.2) 11/26/23 18:10 GFR Calculation 84.5 mL/min (90-130) L 11/26/23 18:10 Glucose 94 mg/dL (65-115) 11/26/23 18:10 Calculated Osmolality 292 mOsm/kg (285-295) 11/26/23 18:10 Calcium 9.1 mg/dL (8.5-10.5) 11/26/23 18:10 Total Bilirubin 0.3 mg/dL (0.15-1.2) 11/26/23 18:10 AST 30 U/L (0-40) 11/26/23 18:10 ALT 43 U/L (0-41) H 11/26/23 18:10 Alkaline Phosphatase 52 U/L (40-130) 11/26/23 18:10 Total Protein 7.2 g/dL (6.6-8.7) 11/26/23 18:10 Albumin 4.4 g/dL (3.5-5.2) 11/26/23 18:10 Globulin 2.8 g/dL (1.3-4.6) 11/26/23 18:10 Lipase 37 U/L (13-60) 11/26/23 18:10 No radiology studies performed this visit Discharge Plan Discharge Patient Disposition: Home Clinical Impression: Abdominal pain Condition: Stable Prescriptions: No Action No Known Home Medications Discharge Orders: Discharge ED (Routine); Ordered 11/26/23 Ordered By: Felecia Belcher Referrals: Joel White DO [Physician] - 1-3 days Discharge Diet: Advance as tolerated Discharge Activity: Resume usual activity Patient Instructions: Abdominal Pain (ED) Coding Level of Care Code ED Certified Prosthetist Vice President for Sujatha Kulkarni
[2023-11-26] MEDS: ibuprofen 600 mg Tablet PO (18:11)
[2023-11-26 18:18] LABS: Basophils # 0.1 10^3/uL (0.0-0.1); Basophils % 0.8 %; Eosinophils # 0.3 10^3/uL (0.0-0.8); Eosinophils % 4.5 %; Hematocrit 43.1 % (37-53); Lymphocytes # 2.2 10^3/uL (0.8-4.8); Lymphocytes % 33.7 %; Mean Corpuscular HGB Conc 34.3 g/dL (30-55); Mean Corpuscular Hemoglobin 30.5 pg (27-33); Mean Corpuscular Volume 88.9 fl (82-101); Mean Platelet Volume 10.2 fL (7.4-10.4); Monocytes # 0.5 10^3/uL (0.2-0.9); Monocytes % 7.4 %; Neutrophils # 3.41 10^3/uL (1.8-7.7); Neutrophils % 53.4 %; Nucleated Red Blood Cells % 0 %; Platelet Count 346 10^3/cmm (157-399); Red Blood Count 4.85 10^6/uL (3.85-5.65); Red Cell Distribution Width 12.3 % (12.1-15.1); White Blood Count 6.38 10^3/uL (3.29-11.43)
[2023-11-26 18:30] VITALS: BP 123/83; PULSE 65; RESP 15; O2SAT 100
[2023-11-26 18:40] LABS: Alanine Aminotransferase 43 U/L (0-41); Albumin Level 4.4 g/dL (3.5-5.2); Alkaline Phosphatase 52 U/L (40-130); Anion Gap 11.9 (5-19); Aspartate Amino Transferase 30 U/L (0-40); Blood Urea Nitrogen 13 mg/dL (6-20); Calcium 9.1 mg/dL (8.5-10.5); Carbon Dioxide 28 mmol/L (22-29); Chloride 105 mmol/L (98-107); Creatinine Clr Calc Pharmacy 102.5781; Globulin 2.8 g/dL (1.3-4.6); Glomerular Filtration Rate 84.5 mL/min (90-130); Glucose 94 mg/dL (65-115); Lipase 37 U/L (13-60); Osmolality Calculated 292 mOsm/kg (285-295); Potassium 3.9 mmol/L (3.5-5.1); Sodium 141 mmol/L (136-145); Total Bilirubin 0.3 mg/dL (0.15-1.2); Total Protein 7.2 g/dL (6.6-8.7)
[2023-11-26 18:50] VITALS: BP 123/83; PULSE 61; RESP 14; O2SAT 98
--- NOTE | 2023-11-28 02:00 | DCPLANNER ---
Message sent to General surgery for referral of hernia- .
== END 2023-11-26 18:59 | disposition home or self-care (01) ==
PROVIDERS: Emergency Provider Emergency Medicine
DX: R10.31 Right lower quadrant pain (principal); K46.9 Unspecified abdominal hernia without obstruction or gangrene
CPT/HCPCS: 36415; 80053; 83690; 85025; 99283